=== PATIENT | male | born 1975 | race Caucasian/White ===

== ENCOUNTER 2020-01-21 12:06 | Emergency (ER) | payer SELFPAY ==
[~2020-01-21] VITALS: Ht 188 cm; Wt 142.9 kg
--- NOTE | 2020-01-21 12:56 | Emergency Department Note ---
History of Present Illnes History of Present Illness Chief Complaint: Skin Rash or Abscess History of Present Illness This is a 44 year old male . c/o abscess to left side posterior neck x 3-4 days Historian: Patient Arrival Mode: Car Onset (how long ago): day(s) (3 days) Location: left side posterior neck Quality: mod Radiation: non-radiation, back, neck, extremity, abdomen, periumbilical, flank, proximal, distal, other Severity: moderate Onset quality: gradual Duration (how long): day(s) (3 days) Timing of current episode: constant Progression: unchanged Context: recent illness, recent surgery, recent immobilization, recent travel, trauma/injury, new medications, hx of DVT/PE, non-compliance w/ medications, other Relieving factors: none Exacerbating factors: none Treatments prior to arrival: none Past Medical/Family History Physician Review I have reviewed the patient's past medical and family history. Any updates have been documented here. Past Medical History Recent Fever: No Clinical Suspicion of Infectio: No New/Unexplained Change in Ment: No Past Medical History: None Past Surgical History: None Social History Smoking Cessation: Never Smoker Alcohol Use: None Any Illegal Drug Use: No TB Exposure/Symptoms: No Physically hurt or threatened: No Family History Family history of heart diseas: No Other Last Tetanus: OOD Any Pre-Existing Lines (PICC,: No Review of Systems Review of Systems Constitutional: no symptoms EENTM: no symptoms Cardiovascular: no symptoms Respiratory: no symptoms Gastrointestinal: no symptoms Genitourinary: no symptoms Musculoskeletal: no symptoms, other (c/o skin abscess left side posterior neck ) Neurological: no symptoms Psychological: no symptoms Endocrine: no symptoms Hematological/Lymphatic: no symptoms Review of other systems All other systems reviewed and negative. Physical Exam Related Data Allergies: Coded Allergies: hydrocodone (Verified Allergy, Unknown, 01/21/20) Triage Vital Signs Vital Signs Date Time Temp Pulse Resp B/P (MAP) Pulse Ox O2 Delivery O2 Flow Rate FiO2 01/21/20 12:45 99.9 93 18 164/101 97 Vital signs reviewed: Yes Physical Exam CONSTITUTIONAL Constitutional: well-developed, well-nourished, obese HENT HENT: normocephalic, atraumatic, oropharynx clear/moist, nose normal HENT L/R: left ext ear normal, right ext ear normal EYES Eyes: PERRL, conjunctivae normal NECK Neck: ROM normal PULMONARY Pulmonary: effort normal, breath sounds normal CARDIOVASCULAR Cardiovascular: regular rhythm, heart sounds normal, capillary refill normal, normal rate GASTROINTESTINAL Abdominal: soft, nontender, bowel sounds normal GENITOURINARY Genitourinary: exam deferred SKIN Skin: warm, dry, other (noted [id number] abscess to left side posteroir neck + flauctuants + redness ) MUSCULOSKELETAL Musculoskeletal: ROM normal NEUROLOGICAL Neurological: alert, oriented x 3, no gross motor or sensory deficits PSYCHOLOGICAL Psychological: mood/affect normal, judgement normal Procedures Incision and Drain Emergent situation: No Type of anesthesia: local (lidocaine w/ epi) Risks and benefits discussed: Yes Verbal consent obtained: Yes Consent given by: patient Imaging studies available/revi: not applicable Required items: not applicable Side verified: yes Type: abscess Size: [id number] Site: neck Skin preparation: Betadine Anesthesia method: local infiltration Patient sedated: No Needle aspiration: No Incision type: stab incision Incision depth: subcutaneous Scalpel blade: 11 Wound management: probed and deloculated, irrigated with saline Drainage: purulent Packing used: 1/2 in iodoform gauze Patient tolerance: tolerated well Procedure attestation: I performed the procedure Critical Care Time Subsequent provider I assumed direction of critical care for this patient from another provider of my specialty. Assessment & Plan Reassessment Reassessment time: 12:49 Reassessment 44y m presented to ed c/o left side posterior neck abscess - will I&D Assessment & Plan Final Impression: (1) Abscess Assessment & Plan discussed plan fo care and wound care instructions and f/u instructions plan 1. follow up with your doctor in 1-2 days without fail 2. return to ed as needed 3. tylenol and motrin 4. warm compresses / soaks three times a day 5. packing out in 48 hours 6. doxycycline bactrim Tramadol Depart Disposition: HOME, SELF-CARE Last Vital Signs Date Time Temp Pulse Resp B/P (MAP) Pulse Ox O2 Delivery O2 Flow Rate FiO2 01/21/20 12:45 99.9 93 18 164/101 97 COLBY GAUTAM Jan 21, 2020 12:56
[2020-01-21] MEDS ORDERED: LIDOCAINE 2%/ EPINEPHRINE 20ML MDV INJ ONE (13:00)
[2020-01-21] MEDS ORDERED: LIDOCAINE 1% W/EPINEPHRINE 20 ML VIAL INJ ONE (13:15)
--- NOTE | 2020-01-21 13:15 | NUR ---
Patient to room 11
[2020-01-21 14:11] VITALS: BP 141/75
== END 2020-01-21 14:11 | disposition home or self-care (01) ==
LOC: ER 12:06
DX: L02.11 Cutaneous abscess of neck (principal)
CPT/HCPCS: 99283; J2001